=== PATIENT | male | born 1980 | race Hispanic/Latino ===

== ENCOUNTER → 2024-07-12 | Day surgery (SDC) | payer OTHER ==
[2024-07-09 11:33] LABS: BASOPHILS % 0.5 % (0.0-1.0); EOSINOPHILS # (AUTO) 0.2 (0.0-0.4); EOSINOPHILS % 2.6 % (0.0-6.0); HEMOGLOBIN 14.9 g/dL (14.0-18.0); LYMPHOCYTES # (AUTO) 2.4 (1.0-3.2); LYMPHOCYTES % 40.3 % (18.0-39.1); MEAN CORPUSCULAR HEMOGLOBIN 30.5 pg (28-32); MEAN CORPUSCULAR HGB CONC 33.9 g/dL (31-35); MONOCYTES # (AUTO) 0.4 (0.2-0.8); MONOCYTES % 6.4 % (4.4-11.3); NEUTROPHILS % 49.9 % (38.7-80.0); PLATELET COUNT 304 x10e3/uL (140-360); RED BLOOD COUNT 4.89 x10e6/uL (4.3-5.7); WHITE BLOOD COUNT 6.05 x10e3/uL (4.8-10.8)
[2024-07-09 11:53] LABS: ALBUMIN 3.9 g/dL (3.5-5.0); ALBUMIN/GLOBULIN RATIO 1.1 (0.8-2.0); BILIRUBIN,TOTAL 0.7 mg/dL (0.2-1.2); CALCIUM 9.5 mg/dL (8.4-10.2); CREATININE, SERUM 0.89 mg/dL (0.72-1.25); TOTAL PROTEIN 7.4 g/dL (6.5-8.1)
[~2024-07-12] MED LIST: ACETAMINOPHEN 1000 MG/100 ML 100 ML IV ONE; BACTRIM 400-801 EACH PO; DEXAMETHASONE SOD PHOS INJ 4 MG/ML SDV ONE; DEXMEDETOMIDINE HCL 2 ML ONE; FENTANYL CITRATE/PF 100MCG/2 ML INJ ONE; HYDROCODONE/APAP 7.5MG-325MG 1 EA TAB ONE; LIDOCAINE HCL 2% LOCAL INJ 5 ML SDV VIAL INJ ONE; MIDAZOLAM HCL 2 MG/2 ML VIAL ONE; ONDANSETRON HCL INJ 2MG/ML 2ML 2 MG/ML VIAL ONE; PROPOFOL IV EMULSION 10 MG/ML 20 ML VIAL ONE; SEVOFLURANE INHAL SOLN 250 ML PEN BTL ONE; SODIUM CHLORIDE 0.9% 100 ML ONE
[2024-07-12] MEDS: LACTATED RINGER'S 1,000 ML ONE (09:29)
[2024-07-12] MEDS: HYDROCODONE/APAP 7.5MG-325MG 1 EA TAB PO ONE (12:52)
[2024-07-12 13:15] VITALS: BP 121/74; PULSE 70; RESP 16; O2SAT 97
== END | disposition home or self-care (01) ==
LOC: OR 09:13
PROVIDERS: ATTEND Surgery
DX: K61.1 Rectal abscess (principal); K58.9 Irritable bowel syndrome, unspecified; Z72.0 Tobacco use; Z01.810 Encounter for preprocedural cardiovascular examination; Z01.812 Encounter for preprocedural laboratory examination
CPT/HCPCS: 36415; 46020; 46270; 80053; 85025; 93005; J0131; J1100; J2003; J2250; J2405; J2704; J3010; J7050; J7121